=== PATIENT | female | born 1985 | race Caucasian/White ===

== ENCOUNTER → 2018-05-26 | Outpatient (CLI) | payer OTHER ==
--- NOTE | 2018-05-31 08:48 | 24HR ---
[facility] [place] [address] 24 HR ELECTROCARDIOGRAM REPORT Name: ESTELITA DUGAN JANET Room #: REG CL [facility]#: [id number] ������������� Admission: 05/26/18 ������������� Attend Phys: Madhu Xavier MD Discharge: ��� ������������� ��� Date of : 81 Date of Service: 05/26/18 1239 �� Report #: [id number] �������� ��������������������������������������������[id number] THIS REPORT FOR: //name// [facility] Test Date: 2018-05-26 Test Time: 12:39:00 Pat Name: ESTELITA DUGAN Department: Room: Gender: Appeals Reviewer Veteran: : 1985 Requested By: Madhu Xavier Order Number: [id number] Reading MD: Garret Fuentes Interpretive Statements 1. The study duration was 24 hours and the technical quality was good. Predominant rhythm sinus rhythm at an average heart rate of 85 bpm, range 48-141 bpm. The longest RR interval was 1.3 seconds. 2. Rare, isolated atrial premature complexes. No heart block. No pauses. No episodes of atrial fibrillation or atrial flutter. No PSVT 3. No ventricular ectopy. No ventricular tachycardia. 4. Symptoms reported as dizzy or shakiness corresponded to sinus rhythm or sinus tachycardia. Electronically Signed On 05-31-2018 8:48:45 CDT by Garret Fuentes [email or web address] ��������������������������������������������� <ELECTRONICALLY SIGNED> ���������������������������������������� By: Garret Fuentes MD, [facility] ��������������������������������������������� 05/31/18 0848 1239 1239 Garret Fuentes MD, [facility] /EPI
== END ==
LOC: CV 11:24
DX: R00.2 Palpitations (principal)